=== PATIENT | female | born 1985 | race Two or more races ===

== ENCOUNTER 2021-03-09 06:01 | Day surgery (SDC) | payer OTHER | END 2021-03-09 17:39 | disposition home or self-care (01) | LOC: CIR.AMB 06:01 → O/R 06:01 → CIR.AMB 08:00 | PROVIDERS: ATTEND Student in an Organized Health Care Education/Training Program | DX: O02.1 Missed abortion (principal); Z20.822 Contact with and (suspected) exposure to COVID-19 ==